=== PATIENT | male | born 1960 ===

== ENCOUNTER → 2017-11-27 | Outpatient (CLI) | payer BC ==
[~2017-11-27] MED LIST: HYDACE5 PO; NAPR500 PO; OMEP20ER PO
== END | disposition home or self-care (01) ==
LOC: LAB EV 10:30
DX: Z12.5 Encounter for screening for malignant neoplasm of prostate (principal); Z11.59 Encounter for screening for other viral diseases; K21.9 Gastro-esophageal reflux disease without esophagitis; E78.5 Hyperlipidemia, unspecified
CPT/HCPCS: 87338

== ENCOUNTER 2018-04-10 08:38 | Emergency (ER) | payer BC ==
[~2018-04-10] VITALS: Ht 177.8 cm; Wt 99.8 kg
[2018-04-10] MEDS ORDERED: Zantac150 MG PO (08:56)
[2018-04-10] MEDS ORDERED: TAMS.4ER PO (08:57)
[2018-04-10 09:33] LABS: BASOPHILS ABSOLUTE AUTO 0.05 K/mm3 (0.00-0.23); BASOPHILS PERCENT AUTO 0 % (0-2); EOSINOPHILS ABSOLUTE AUTO 0.07 K/mm3 (0.00-0.68); EOSINOPHILS PERCENT AUTO 1 % (0-6); Hematocrit 47.1 % (37.0-53.0); Hemoglobin 16.3 g/dL (13.5-17.5); IMMATURE GRAN ABSOLUTE AUTO 0.04 K/mm3 (0.00-0.10); IMMATURE GRAN PERCENT AUTO 0 % (0-1); LYMPHOCYTES ABSOLUTE AUTO 1.15 K/mm3 (0.84-5.20); LYMPHOCYTES PERCENT AUTO 10 % (21-46); MONOCYTES ABSOLUTE AUTO 0.91 K/mm3 (0.16-1.47); MONOCYTES PERCENT AUTO 8 % (4-13); Mean Corpuscular HGB 31.7 pg (26.0-34.0); Mean Corpuscular HGB Conc 34.6 g/dL (31.5-36.5); Mean Corpuscular Volume 92 fL (80-100); Mean Platelet Volume 8.8 fL (9.1-12.4); NEUTROPHILS PERCENT AUTO 81 % (41-73); Platelet Count 256 K/mm3 (150-400); RDW Coefficient Variation 11.9 % (11.7-14.2); RDW Standard Deviation 39.9 fL (35.1-46.3); Red Blood Cell Count 5.14 M/mm3 (4.30-5.90); White Blood Cell Count 11.52 K/mm3 (4.00-11.30)
[2018-04-10 09:46] LABS: Source, Urine Clean Catch
[2018-04-10 09:51] LABS: Alanine Aminotransfer (ALT/SGP 30 U/L (12-78); Albumin, Blood 3.9 g/dL (3.4-5.0); Albumin/Globulin Ratio 1.1 (0.8-1.8); Alk Phos 71 U/L (50-136); Anion Gap 8 mmol/L (6-16); Aspartate Aminotrans (AST/SGOT 20 U/L (12-37); Bilirubin, Total 0.6 mg/dL (0.1-1.0); Blood Urea Nitrogen 15 mg/dL (8-24); CO2, Blood 25 mmol/L (21-32); Calcium, Blood 8.7 mg/dL (8.5-10.1); Chloride, Blood 108 mmol/L (98-108); Creatinine, Blood 0.94 mg/dL (0.60-1.20); Globulin, Blood 3.6 g/dL (2.2-4.0); Glomerular Filtration Rate >60 (60-); Glucose, Blood 93 mg/dL (70-99); Potassium, Blood 3.7 mmol/L (3.5-5.5); Sodium, Blood 141 mmol/L (136-145); Total Protein, Blood 7.5 g/dL (6.4-8.2)
[2018-04-10 09:55] LABS: Bilirubin, Urine Neg (Neg); Blood, Urine 1+ (Neg); Glucose Qualitative, Urine Neg (Neg); Ketones, Urine Neg (Neg); Leukocyte Esterase, Urine Neg (Neg); Nitrite, Urine Neg (Neg); Protein, Urine Neg (Neg); Specific Gravity, Urine 1.015 (1.003-1.022); Urobilinogen, Urine NORM (Normal)
[2018-04-10 10:07] LABS: Appearance, Urine Clear (Clear); Bacteria Not Seen /hpf; Color, Urine Yellow (P-Yellow); Mucus Light ({null, 0-Heavy}); Red Blood Cells, Urine 0-2 /hpf (0-2); Squamous Epithelial Cells Not Seen /hpf (Few); White Blood Cells, Urine 0-2 /hpf (0-5)
== END 2018-04-10 10:54 | disposition home or self-care (01) ==
LOC: ER 08:38
PROVIDERS: Emergency Medicine
DX: A08.4 Viral intestinal infection, unspecified (principal); K62.5 Hemorrhage of anus and rectum; Z79.899 Other long term (current) drug therapy
CPT/HCPCS: 36415; 80053; 81001; 82272; 83690; 85025; 99284; J7120

== ENCOUNTER 2018-04-23 11:44 | Day surgery (SDC) | payer BC ==
[~2018-04-23] VITALS: Ht 177.8 cm; Wt 101.2 kg
[~2018-04-23 11:44] MED LIST changes: +TAMS.4ER PO; +Zantac150 MG PO
--- NOTE | 2018-04-23 13:04 | NUR ---
04/23/18 1304 Yasmine Parsons PT ASSISTED TO RESTROOM PRIOR TO DISCHARGE
== END 2018-04-23 13:04 | disposition home or self-care (01) ==
LOC: ORSCSDS 11:44
PROVIDERS: Internal Medicine Gastroenterology
PROC: 0DB58ZX Excision of Esophagus, Via Natural or Artificial Opening Endoscopic, Diagnostic (ICD-10-PCS; principal; 2018-04-23 13:00)
PROC: 0DB68ZX Excision of Stomach, Via Natural or Artificial Opening Endoscopic, Diagnostic (ICD-10-PCS; principal; 2018-04-23 13:00)
PROC: 0D758ZZ Dilation of Esophagus, Via Natural or Artificial Opening Endoscopic (ICD-10-PCS; principal; 2018-04-23 13:00)
DX: R13.10 Dysphagia, unspecified (principal); K21.0 Gastro-esophageal reflux disease with esophagitis; K29.70 Gastritis, unspecified, without bleeding; K29.80 Duodenitis without bleeding; E66.9 Obesity, unspecified; Z68.33 Body mass index [BMI] 33.0-33.9, adult; G47.33 Obstructive sleep apnea (adult) (pediatric); Z79.899 Other long term (current) drug therapy
CPT/HCPCS: 88305; 88342; J7120

== ENCOUNTER → 2019-02-03 | Outpatient (CLI) | payer OTHER, BC | END | disposition home or self-care (01) | LOC: LAB SHORT 07:49 → PLD 07:49 | DX: L57.0 Actinic keratosis (principal) | CPT/HCPCS: 88305; 88342 ==

== ENCOUNTER 2019-08-27 09:28 | Day surgery (SDC) | payer BC ==
[~2019-08-27] VITALS: Ht 177.8 cm; Wt 105.2 kg
== END 2019-08-27 11:40 | disposition home or self-care (01) ==
LOC: ORSCSDS 09:28
PROVIDERS: Orthopaedic Surgery
PROC: 01N54ZZ Release Median Nerve, Percutaneous Endoscopic Approach (ICD-10-PCS; principal; 2019-08-27 10:45)
DX: G56.02 Carpal tunnel syndrome, left upper limb (principal); K21.9 Gastro-esophageal reflux disease without esophagitis; E66.9 Obesity, unspecified; Z68.33 Body mass index [BMI] 33.0-33.9, adult; Z79.899 Other long term (current) drug therapy
CPT/HCPCS: J0690; J2250; J2704; J3010; J7120

== ENCOUNTER 2020-01-21 10:53 | Day surgery (SDC) | payer BC ==
[~2020-01-21] VITALS: Ht 180.3 cm; Wt 103.5 kg
[~2020-01-21 10:53] MED LIST changes: +NEOPOLHCSU LEFTEAR; +Ranitidine HCl150 M1 PO
--- NOTE | 2020-01-21 12:31 | NUR ---
01/21/20 1231 Grecia Stover 1220 TIME OUT AND SIT CHECK DONE WITH DR WELLER
--- NOTE | 2020-01-21 13:45 | NUR ---
01/21/20 [id number] Lor Perez PT. ARRIVED FROM OR WITH A MEDIUM SLING ALREADY OPENED AND ON BED BUT IT WAS TOO SMALL SO IT WAS WASTED AND A LARGE ONE WAS PROVIDED.
== END 2020-01-21 13:38 | disposition home or self-care (01) ==
LOC: ORSCSDS 10:53
PROVIDERS: Orthopaedic Surgery
PROC: 0LN70ZZ Release Right Hand Tendon, Open Approach (ICD-10-PCS; principal; 2020-01-21 12:15)
PROC: 01N54ZZ Release Median Nerve, Percutaneous Endoscopic Approach (ICD-10-PCS; principal; 2020-01-21 12:15)
DX: G56.01 Carpal tunnel syndrome, right upper limb (principal); M65.311 Trigger thumb, right thumb; G47.33 Obstructive sleep apnea (adult) (pediatric); K21.9 Gastro-esophageal reflux disease without esophagitis; Z79.899 Other long term (current) drug therapy
CPT/HCPCS: J2250; J3010; J7120

== ENCOUNTER 2021-09-16 10:09 | Emergency (ER) | payer BC ==
[~2021-09-16] VITALS: Ht 177.8 cm; Wt 99.8 kg
[2021-09-16 11:16] LABS: BASOPHILS ABSOLUTE AUTO 0.06 K/mm3 (0.00-0.23); BASOPHILS PERCENT AUTO 1 % (0-2); EOSINOPHILS ABSOLUTE AUTO 0.03 K/mm3 (0.00-0.68); EOSINOPHILS PERCENT AUTO 0 % (0-6); Hematocrit 48.6 % (37.0-53.0); Hemoglobin 17.4 g/dL (13.5-17.5); IMMATURE GRAN ABSOLUTE AUTO 0.03 K/mm3 (0.00-0.10); IMMATURE GRAN PERCENT AUTO 0 % (0-1); LYMPHOCYTES ABSOLUTE AUTO 1.18 K/mm3 (0.84-5.20); LYMPHOCYTES PERCENT AUTO 10 % (21-46); MONOCYTES ABSOLUTE AUTO 0.89 K/mm3 (0.16-1.47); MONOCYTES PERCENT AUTO 7 % (4-13); Mean Corpuscular HGB 32.8 pg (26.0-34.0); Mean Corpuscular HGB Conc 35.8 g/dL (31.5-36.5); Mean Corpuscular Volume 92 fL (80-100); Mean Platelet Volume 9.5 fL (9.1-12.4); NEUTROPHILS ABSOLUTE AUTO 10.25 K/mm3 (1.96-9.15); NEUTROPHILS PERCENT AUTO 82 % (41-73); Platelet Count 279 K/mm3 (150-400); RDW Coefficient Variation 12.6 % (11.7-14.2); RDW Standard Deviation 42.6 fL (35.1-46.3); Red Blood Cell Count 5.31 M/mm3 (4.30-5.90); White Blood Cell Count 12.44 K/mm3 (4.00-11.30)
[2021-09-16 11:38] LABS: Albumin, Blood 3.9 g/dL (3.4-5.0); Albumin/Globulin Ratio 1.1 (0.8-1.8); Bilirubin, Total 0.7 mg/dL (0.1-1.0); Calcium, Blood 9.2 mg/dL (8.5-10.1); Creatinine, Blood 0.9 mg/dL (0.60-1.20); Globulin, Blood 3.7 g/dL (2.2-4.0); Magnesium, Blood 2.3 mg/dL (1.6-2.4); Potassium, Blood 3.9 mmol/L (3.5-5.5); Total Protein, Blood 7.6 g/dL (6.4-8.2)
[2021-09-16] MEDS ORDERED: LEVE500 PO (13:12)
== END 2021-09-16 13:50 | disposition home or self-care (01) ==
LOC: ER 10:09
PROVIDERS: Emergency Medicine
DX: R56.9 Unspecified convulsions (principal); S01.512A Laceration without foreign body of oral cavity, initial encounter; X58.XXXA Exposure to other specified factors, initial encounter; K21.9 Gastro-esophageal reflux disease without esophagitis
CPT/HCPCS: 36415; 70450; 80053; 83735; 85025; 93005; 93010; J1953